=== PATIENT | female | born 2000 | race Hispanic/Latino ===

== ENCOUNTER 2025-06-19 13:57 | Emergency (ER) | payer SELFPAY ==
[~2025-06-19] VITALS: Ht 157.5 cm; Wt 95.3 kg
--- NOTE | 2025-06-19 14:56 | ERN ---
ED Note History of Present Illness Stated Complaint: LUMP TO RT SIDE OF NECK Chief Complaint: Neck Pain Time Seen by MD: 13:59 Time Seen by Midlevel: 14:00 Dictation: 24-year-old female with no past medical history coming in with complaints of a bump to the right side of her neck onset today. Denies any fever, nausea, vomiting, recent illness, unintentional weight loss, fatigue or night sweats. Allergies: Coded Allergies: No Known Drug Allergies (Unverified Allergy, Unknown, 06/19/25) Past Medical History Past Medical History: No Pertinent History Surgical History: None LMP: Jun 04, 2025 Review of System Dictation Constitutional: Negative for fever,chills, and weight loss Eyes: Negative for injury, pain,redness, and discharge ENT: Negative for injury,pain or swelling Cardiovascular: Negative for chest pain, palpitations, and edema Respiratory: Negative for shortness of breath, cough, and wheezing, Abdomen/GI: Negative for abdominal pain, nausea, vomiting, diarrhea, and constipation Back: Negative for injury and pain : Negative for injury, bleeding and discharge MS/Extremity: Negative for injury and deformity Skin: Negative for rash, and discoloration Neuro: Negative for headache, weakness, numbness, tingling, and seizure Psych: Negative for suicide ideation, homicidal ideation, and hallucinations Review of Systems: was completed Initial Vital Sign VS Vital Signs Date Time Temp Pulse Resp B/P (MAP) Pulse Ox O2 Delivery O2 Flow Rate FiO2 06/19/25 13:59 98.8 111 16 148/79 96 Room Air 0 Physical Exam Dictation General: awake, alert, NAD Head/Face: Normocephalic, atraumatic Eyes: PERRL, EOMI, vision at baseline ENT: oral cavity clear, TMs clear, no signs of infection Neck: Trachea midline, supple, no nuchal rigidity, palpable cervical mass Cardiovascular: RRR, normal S1/S2, No MRGs, no JVD Respiratory: CTAB, no respiratory distress, No rales or wheezes Abdomen: Soft, non-tender, non-distended, normal bowel sounds, no guarding or rebound. Skin: Warm, dry, normal turgor, no rash MS/Extremity: Pulses equal, no cyanosis, neurovascular intact, FROM Neuro: COAx4, GCS 15, strength 5/5, CN 2-12 intact, normal cerebellar exam, normal gait, Psych: Normal behavior, mood, and affect normal Results (Laboratory/Radiology) Labs Reviewed?: Yes ED Course ED Course Orders Procedure Category Date Status Time Us Soft Tissue Neck US 06/19/25 Taken 14:08 Vital Signs Date Time Temp Pulse Resp B/P (MAP) Pulse Ox O2 Delivery O2 Flow Rate FiO2 06/19/25 13:59 98.8 111 16 148/79 96 Room Air 0 Medical Decision Making MDM MDM: 24-year-old female with no past medical history coming in with complaints of a bump to the right side of her neck onset today. Denies any fever, nausea, vomiting, recent illness, unintentional weight loss, fatigue or night sweats. Ultrasound shows right neck posterior lymph node measuring 16 x 5 x 12 mm. 24-year-old patient presents with the acute onset neck bump on noted today. Patient denies fever, chills, night sweats, unintentional weight loss, fatigue, recent illness, sore throat, dental infection or recent travel. No history of malignancy or immunocompromise. On exam patient has a palpable cervical mass consistent with lymphadenopathy, without overlying erythema, warmth, fluctuance, minimal tenderness. No airway compromise, dysuria your voice changes. Ultrasound of the neck obtain to further evaluate the mass and demonstrated a lymph node measuring 16 x 5 x 12 mm without sonographic features of abscess necrosis or suspicious solid mass. Patient is clinically stable appropriate for outpatient management. Patient was advised on supportive care close observation and strict return precautions including fever, rapid enlargement, persistent lymphadenopathy be on several weeks, pain erythema, night sweats weight loss with difficulty swallowing. Differential diagnosis: Localized enlarged lymph node, abscess, Rationale: Tests considered and ordered secondary to shared decision making include: Previous outside records reviewed: Old ER visits. Risk of complication and/or morbidity or mortality of patient management: None Medications-Per medication reconciliation Need for hospitalization: Patient does not meet criteria for hospitalization. Need for emergency major/minor surgery: No There are no social concerns with this patient. Prescription drug management Prescriptions will include symptomatic care Patient's prior external medical records from other ER visits were reviewed by me as indicated. Prior testing and results from previous visits were reviewed. Prior tests were taken into account with medical decision making and resource utilization, independent historian/historians were used to obtain complete medical history. I independently interpreted the test that were performed, results were reviewed by me and considered findings on radiology if ordered. Medical management and examination interpretation discussions were had by me with other qualified healthcare professionals as indicated for the patient's care. DX & DISP Disposition: Discharge Departure Impression: Primary Impression: Lymphadenopathy Condition: Stable Additional Instructions: Return to the hospital if he has a sudden enlargement of the mass, fever, night sweats, weight loss, difficulty swallowing. Follow up with the primary doctor for further evaluation. Time of Disposition: 14:55 I have reviewed the case, and I agree with, Diagnosis and Plan [facility]I [facility] Jun 19, 2025 14:56
--- NOTE | 2025-06-19 14:57 | HMCIMG ---
STUDY: ULTRASOUND OF THE SOFT TISSUES OF THE NECK CLINICAL INFORMATION: Right-sided neck pain and palpable mass. TECHNIQUE: High-resolution grayscale and color Doppler ultrasound of the right neck was performed with focused evaluation of the region of clinical concern. COMPARISON: None provided. FINDINGS: NECK SOFT TISSUES: Superficial soft tissues of the right neck in the region of interest are unremarkable without focal fluid collection or non-ganesh solid mass. Overlying skin and subcutaneous tissues appear within normal limits on this limited examination. LYMPH NODES: In the right posterior cervical region, there is a single lymph node measuring approximately 16 x 5 x 12 mm. The node is elongated with a preserved anechoic to hypoechoic hilum and a thin cortex, without abnormal cortical thickening, necrosis, calcification, or hilar displacement. Vascularity (where evaluated) appears centered toward the hilum, a pattern typical of a benign/reactive lymph node. No additional pathologically enlarged or morphologically suspicious cervical lymph nodes are described in the scanned area. IMPRESSION: * Single right posterior cervical lymph node measuring 16 x 5 x 12 mm with preserved hilum and benign morphologic features, most consistent with a reactive lymph node in the appropriate clinical context (such as recent or ongoing local inflammation or infection). Recommend clinical correlation and short-term clinical follow-up; if the node increases in size, becomes more firm or fixed, or if there are associated systemic B symptoms (fever, night sweats, weight loss), further evaluation with repeat ultrasound and possible ultrasound-guided fine-needle aspiration or cross-sectional imaging (CT or MRI) would be appropriate. /Brianne
[2025-06-19 16:07] VITALS: BP 132/84; PULSE 78; RESP 16; TEMP 98.4; O2SAT 98
== END 2025-06-19 16:08 | disposition home or self-care (01) ==
LOC: EDH 13:57
DX: R59.1 Generalized enlarged lymph nodes (principal)
CPT/HCPCS: 76536; 99284